=== PATIENT | female | born 1960 | race American Indian/Alaskan Native ===

== ENCOUNTER 2017-11-27 09:29 | Observation (INO) | payer MEDICARE ==
[2017-11-27 09:45] VITALS: BMI 29.4
--- NOTE | 2017-11-27 10:17 | ED PDOC ---
Arrival/HPI - General Chief Complaint: Syncope Time Seen by Provider: 11/27/17 09:52 Historian: Patient - History of Present Illness Narrative History of Present Illness (Text): 11/27/17 16:19 57yo female with PMhx of hypertension, hypercholestremia, breast CA and MS present with complaint of abdominal pain, diarrhea, chest pain and syncopal episode yesterday. Patient report chronic history of diarrhea. States it became worse, constant yesterday. States while having diarrhea yesterday, she had a syncopal episode and hit her head on the floor. Started having chest pain today. Did not take any medication today. denies fever,chills, SOB, diaphoresis , nausea, vomiting, focal weakness, LE edema, calf pain, dizziness, visual changes, focal weakness. Past Medical History - Provider Review Nursing Documentation Reviewed: Yes - Infectious Disease Hx of Infectious Diseases: None - Cardiac Hx Cardiac Disorders: Yes Hx Hypertension: Yes - Pulmonary Hx Respiratory Disorders: No - Neurological Hx Neurological Disorder: No Hx Alzheimer's Disease: No - HEENT Hx HEENT Disorder: No - Renal Hx Renal Disorder: No - Endocrine/Metabolic Hx Endocrine Disorders: No - Hematological/Oncological Hx Blood Disorders: Yes Hx Blood Transfusions: No Hx Blood Transfusion Reaction: No Hx Cancer: Yes (breast cancer) - Integumentary Hx Dermatological Disorder: No - Musculoskeletal/Rheumatological Hx Musculoskeletal Disorders: Yes Other/Comment: multiple sclerosis - Gastrointestinal Hx Gastrointestinal Disorders: Yes Hx Gastroesophageal Reflux: Yes - Genitourinary/Gynecological Hx Genitourinary Disorders: No - Psychiatric Hx Psychophysiologic Disorder: Yes Hx Anxiety: Yes Hx Depression: No Hx Emotional Abuse: No Hx Physical Abuse: No Hx Substance Use: No - Surgical History Hx Breast Biopsy: Yes (right breast) Hx Musculoskeletal Surgery: Yes (back) - Anesthesia Hx Anesthesia: Yes Hx Anesthesia Reactions: No Hx Malignant Hyperthermia: No - Suicidal Assessment Feels Threatened In Home Enviroment: No Family/Social History - Physician Review Nursing Documentation Reviewed: Yes Family/Social History: Unknown Family HX Smoking Status: Never Smoked Hx Alcohol Use: No Hx Substance Use: No Allergies/Home Meds Allergies/Adverse Reactions: Allergies No Known Allergies Allergy (Verified 11/27/17 17:12) Home Medications: Home Meds Medication Instructions Recorded Confirmed Diltiazem HCl [Diltiazem 24Hr Cd] 240 mg PO DAILY 11/27/17 11/27/17 Ergocalciferol (Vitamin D2) 50,000 unit PO QWK 11/27/17 11/27/17 [Vitamin D2] Pantoprazole Sodium [Protonix] 40 mg PO BID 11/27/17 11/27/17 Potassium Chloride [Klor-Con M10] 10 meq PO BID 11/27/17 11/27/17 Rosuvastatin Calcium [Crestor] 20 mg PO HS 11/27/17 11/27/17 Valsartan/Hydrochlorothiazide 1 tab PO DAILY 11/27/17 11/27/17 [Valsartan and Hydrochlorothiazide 25 mg-320 M] Zolpidem Tartrate [Zolpidem 12.5 mg PO PRN PRN 11/27/17 11/27/17 Tartrate ER] Review of Systems - Physician Review All systems were reviewed & negative as marked: Yes - Review of Systems Constitutional: Normal Eyes: Normal ENT: Normal Respiratory: Normal Cardiovascular: Chest Pain. absent: Palpitations, Edema, Calf Pain, MATA Gastrointestinal: Abdominal Pain, Diarrhea. absent: Constipation, Nausea, Vomiting, Hematochezia, Hematemesis Genitourinary Female: Normal Musculoskeletal: Normal Skin: Normal Neurological: Normal Endocrine: Normal Hemo/Lymphatic: Normal Psychiatric: Normal Physical Exam Vital Signs Reviewed: Yes Vital Signs Temp Pulse Resp BP Pulse Ox 11/27/17 18:01 80 17 129/70 99 11/27/17 15:17 85 18 131/65 98 11/27/17 13:22 75 18 131/82 99 11/27/17 11:53 81 17 132/76 98 11/27/17 09:44 97.9 F 66 19 143/96 H 100 Temperature: Afebrile Blood Pressure: Normal Pulse: Regular Respiratory Rate: Normal Appearance: Positive for: Well-Appearing, Non-Toxic, Comfortable Pain Distress: None Mental Status: Positive for: Alert and Oriented X 3 Finger Stick Blood Glucose: 126 - Systems Exam Head: Present: Atraumatic, Normocephalic Pupils: Present: PERRL Extroacular Muscles: Present: EOMI Conjunctiva: Present: Normal Mouth: Present: Moist Mucous Membranes Neck: Present: Normal Range of Motion Respiratory/Chest: Present: Clear to Auscultation, Good Air Exchange. No: Respiratory Distress, Accessory Muscle Use Cardiovascular: Present: Regular Rate and Rhythm, Normal S1, S2. No: Murmurs Abdomen: Present: Normal Bowel Sounds, Other (Soft). No: Tenderness, Distention , Peritoneal Signs, Rebound, Guarding, McBurney's Point Tender, Rovsing's Sign Present Back: Present: Normal Inspection Upper Extremity: Present: Normal Inspection. No: Cyanosis, Edema Lower Extremity: Present: Normal Inspection. No: Edema Neurological: Present: GCS=15, CN II-XII Intact, Speech Normal Skin: Present: Warm, Dry, Normal Color. No: Rashes Psychiatric: Present: Alert, Oriented x 3, Normal Insight, Normal Concentration Medical Decision Making ED Course and Treatment: 11/27/17 10:17 EKG NSR @73bpm 11/27/17 18:41 PT presented for stated history. First CE was negative. Potassium was repleted. Ekg as noted above. D dimer was elevated and V/Q was ordered to r/p PE. V/Q was negative for PE. Head CT - Negative Pt have cardiac risk and will be admitted for chest pain. ASA was given Case was DW Dr. Valenzuela and pt was placed on OBS. - Lab Interpretations Lab Results: 11/27/17 10:00 11/27/17 11:40 Lab Results 11/27/17 11:40: Sodium 139, Potassium 3.1 L, Chloride 100, Carbon Dioxide 24, Anion Gap 17, BUN 20, Creatinine 0.9, Est GFR ( Amer) > 60, Est GFR (Non- Af Amer) > 60, Random Glucose 118 H, Calcium 10.1, Magnesium 2.1, Total Bilirubin 0.5, AST 42 H D, ALT 42, Alkaline Phosphatase 63, Lactate Dehydrogenase 501, Total Creatine Kinase 73, Troponin I < 0.01, Total Protein 7.6, Albumin 4.2, Globulin 3.4, Albumin/Globulin Ratio 1.3, Lipase 82 11/27/17 11:15: Urine Color Yellow, Urine Appearance Clear, Urine pH 6.0, Ur Specific [place] 1.025, Urine Protein 30 H, Urine Glucose (UA) Negative, Urine Ketones Trace H, Urine Blood Trace-lysed H, Urine Nitrate Negative, Urine Bilirubin Negative, Urine Urobilinogen 0.2, Ur Leukocyte Esterase Negative, Urine RBC 1 - 3, Urine WBC 0 - 2, Ur Epithelial Cells 4 - 5, Amorphous Sediment Moderate, Urine Bacteria Many, Urine Other Uyeast 11/27/17 10:05: PT 12.0, INR 1.04, APTT 24.2 L, D-Dimer, Quantitative 286 H 11/27/17 10:00: WBC 8.8, RBC 4.89, Hgb 14.1 D, Hct 41.6, MCV 85.1, MCH 28.8, MCHC 33.9, RDW 14.8 H, Plt Count 395, MPV 9.7, Gran % 62.1, Lymph % (Auto) 33.3 , [place] % (Auto) 3.9, Eos % (Auto) 0.2 L, Baso % (Auto) 0.5, Gran # 5.45, Lymph # (Auto) 2.9, [place] # (Auto) 0.3, Eos # (Auto) 0.0, Baso # (Auto) 0.04 11/27/17 09:48: POC Glucose (mg/dL) 126 H - RAD Interpretation Radiology Orders: 11/27/17 10:08 HEAD W/O CONTRAST [CT] Stat 11/27/17 13:27 LUNG PERF & VENT SCAN [NM] Stat - Medication Orders Current Medication Orders: Acetaminophen (Tylenol 325mg Tab) 650 mg PO Q4H PRN PRN Reason: Pain, Mild (1-3) Aspirin (Ecotrin) 81 mg PO DAILY [facility] Atorvastatin Calcium (Lipitor) 80 mg PO HS MIGEL Diltiazem HCl (Cardizem Cd) 240 mg PO DAILY [facility] Ergocalciferol (Drisdol 50,000 Intl Units Cap) 1 cap PO QWK [facility] Heparin Sodium (Porcine) (Heparin) 5,000 units SC Q12 MIGEL PRN Reason: Protocol Potassium Chloride (Potassium Chloride 20 Meq/100 Ml) 20 meq in 100 mls @ 50 mls/hr IVPB Q2H MIGEL Stop: 11/27/17 21:59 Last Admin: 11/27/17 18:26 Dose: 50 mls/hr eMAR Start Stop Document 11/27/17 18:26 SF (Rec: 11/27/17 18:26 SF [id number]) Intravenous Solution Start Date 11/27/17 Start Time 18:26 End Date 11/27/17 End time 20:26 Total Infusion Time 120 Sodium Chloride (Sodium Chloride 0.9%) 1,000 mls @ 80 mls/hr IV .[id number] MIGEL Stop: 11/28/17 19:14 Last Admin: 11/27/17 18:23 Dose: 80 mls/hr eMAR Start Stop Document 11/27/17 18:23 SF (Rec: 11/27/17 18:23 SF [id number]) Intravenous Solution Start Date 11/27/17 Start Time 18:23 Ondansetron HCl (Zofran Inj) 4 mg IVP Q4H PRN PRN Reason: Nausea/Vomiting Pantoprazole Sodium (Protonix Ec Tab) 40 mg PO BID MIGEL Last Admin: 11/27/17 18:25 Dose: 40 mg Valsartan (Diovan) 320 mg PO DAILY [facility] Zolpidem Tartrate (Ambien) 5 mg PO HS PRN PRN Reason: Insomnia Discontinued Medications Acetaminophen (Tylenol 325mg Tab) 650 mg PO STAT STA Stop: 11/27/17 13:06 Last Admin: 11/27/17 13:26 Dose: 650 mg MAR Pain/Vitals Document 11/27/17 13:26 SF (Rec: 11/27/17 13:26 SF [id number]) Pain Reassessment Is This A Pain ReAssessment? Yes Sleep Is patient sleeping during reassessment? No Presence of Pain Presence of Pain Yes Pain Scale Used Pain Scale Used Numeric Location Pain Location Body Screener Operator Aspirin (Aspirin) 325 mg PO STAT STA Stop: 11/27/17 13:06 Last Admin: 11/27/17 13:26 Dose: 325 mg Non-Formulary Medication (Zolpidem Tartrate [Zolpidem Tartrate Er]) 12.5 mg PO PRN PRN PRN Reason: Insomnia Potassium Chloride (K-Dur 20 Meq Er Tab) 40 meq PO STAT STA Stop: 11/27/17 16:18 Last Admin: 11/27/17 18:25 Dose: 40 meq Potassium Chloride (K-Dur 20 Meq Er Tab) 20 meq PO STAT STA Stop: 11/27/17 16:28 Last Admin: 11/27/17 18:14 Dose: Disposition/Present on Arrival - Present on Arrival Any Indicators Present on Arrival: No History of DVT/PE: No History of Uncontrolled Diabetes: No Urinary Catheter: No History of Decub. Ulcer: No History Surgical Site Infection Following: None - Disposition Have Diagnosis and Disposition been Completed?: Yes Diagnosis: Chest pain, Syncope Disposition: HOSPITALIZED Disposition Time: 16:00 Patient Plan: Admission Patient Problems: Current Active Problems Problem Status Onset Chest pain Acute Syncope Acute Condition: FAIR
[2017-11-27 10:18] LABS: BASO # 0.04 K/mm3 (0.0-2.0); BASO % 0.5 % (0.0-3.0); EOS % 0.2 % (1.5-5.0); GRAN # 5.45 (1.4-6.5); GRAN % 62.1 % (50.0-68.0); HEMOGLOBIN 14.1 g/dL (12.0-16.0); LYMPH # 2.9 (1.2-3.4); LYMPH % 33.3 % (22.0-35.0); MEAN CELL VOLUME 85.1 fl (80.0-105.0); MEAN CORPUSCULAR HEMOGLOBIN 28.8 pg (25.0-35.0); MEAN CORPUSCULAR HGB CONC 33.9 g/dl (31.0-37.0); MEAN PLATELET VOLUME 9.7 fl (7.0-11.0); MONO # 0.3 (0.1-0.6); MONO % 3.9 % (1.0-6.0); RBC 4.89 10^6/uL (3.5-6.1); RED CELL DISTRIBUTION WIDTH 14.8 % (11.5-14.5); WHITE BLOOD COUNT 8.8 10^3/ul (4.5-11.0)
[2017-11-27 10:33] LABS: INR 1.04 (0.93-1.08); PARTIAL THROMBOPLASTIN TIME 24.2 Seconds (25.1-36.5)
--- NOTE | 2017-11-27 11:08 | CT ---
PROCEDURE: CT HEAD WITHOUT CONTRAST. HISTORY: head injury COMPARISON: None available. TECHNIQUE: Axial computed tomography images were obtained through the head/brain without intravenous contrast. Radiation dose: Total exam DLP = 895.02 mGy-cm. This CT exam was performed using one or more of the following dose reduction techniques: Automated exposure control, adjustment of the mA and/or kV according to patient size, and/or use of iterative reconstruction technique. FINDINGS: HEMORRHAGE: No intracranial hemorrhage. BRAIN: No mass effect or edema. No atrophy or chronic microvascular ischemic changes. VENTRICLES: Unremarkable. No hydrocephalus. CALVARIUM: Unremarkable. PARANASAL SINUSES: Unremarkable as visualized. No significant inflammatory changes. MASTOID AIR CELLS: Unremarkable as visualized. No inflammatory changes. OTHER FINDINGS: None. IMPRESSION: No acute intracranial abnormalities. No significant findings to account for the clinical presentation.
[2017-11-27 11:21] LABS: URINE BILIRUBIN NEGATIVE (NEGATIVE); URINE BLOOD TRACE-LYSED (NEGATIVE); URINE GLUCOSE (UA) NEGATIVE (NEGATIVE); URINE LEUKOCYTE ESTERASE NEGATIVE Leu/uL (NEGATIVE); URINE PROTEIN 30 mg/dL (<30 mg/dL); URINE UROBILINOGEN 0.2 E.U./dL (<1 E.U./dL)
[2017-11-27 11:28] LABS: URINE APPEARANCE CLEAR (CLEAR); URINE COLOR YELLOW (YELLOW)
[2017-11-27 11:38] LABS: URINE AMORPHOUS SEDIMENT MODERATE; URINE BACTERIA MANY (NEG); URINE WBC 0 - 2 /hpf (0-6)
[2017-11-27 11:59] LABS: ALB/GLOB RATIO 1.3 (1.1-1.8); ALBUMIN 4.2 g/dL (3.0-4.8); ALT/SGPT 42 U/L (7-56); AST/SGOT 42 U/L (14-36); BLOOD UREA NITROGEN 20 mg/dL (7-21); CALCIUM 10.1 mg/dL (8.4-10.5); GFR AFRICAN-AMERICAN > 60; GFR NON-AFRICAN AMERICAN > 60; LIPASE 82 U/L (23-300)
[2017-11-27 12:09] LABS: TROPONIN I < 0.01 ng/mL
[2017-11-27] MEDS ORDERED: Iohexol 350 MG/100 ML VIAL ONE ×2 (12:56→18:16)
--- NOTE | 2017-11-27 15:02 | NM ---
COMPARISON: 09/30/2017 TECHNIQUE: 30.0 mCi technetium 99-m DTPA aerosol. 3.6 mCI technetium 99-m MAA administered intravenously. FINDINGS: VENTILATION COMPONENT: Normal. PERFUSION COMPONENT: Normal. IMPRESSION: Negative ventilation perfusion scan for pulmonary embolism.
[2017-11-27] MEDS ORDERED: Potassium Chloride 20 mEq ER Tab PO STA ×2 (16:17→16:27)
--- NOTE | 2017-11-27 16:25 | CP.PCM.HP ---
<Kathy Evans - Last Filed: 11/27/17 19:31> History of Present Illness - History of Present Illness History of Present Illness: 57yo female with PMhx of breast CA and MS diagnosed by neurologist presents with cough, diarrhea yesterday. Patient states she had a cold and Dr. Valenzuela prescribed mucinex, which is the first time she took this medication. Patient states she had diarrhea multiple times yesterday. Patient states she had a syncopal episode on her way to the bathroom, she had a panic attack, called for her son and then found herself on the ground with the back of her neck and right frontal area of her head hurting. Patient also says her chest pain started yesterday after her coughing started. Patient states her pain feels dull like a bruise. . Patient denies ever,chills, SOB, diaphoresis, nausea, vomiting, any weakness, numbness, tingling, diarrhea after today.. Patient admits to right sided chest pain that feels like a bruise that's reproducible. PMH: breast CA and MS PSH:none Family history: mother and father are . patient does not know family history Social history: never smoker, patient denies etoh, illicit drug use PMD: Dr. Valenzuela. Present on Admission - Present on Admission Any Indicators Present on Admission: Yes History of DVT/PE: No History of Uncontrolled Diabetes: No Urinary Catheter: No Decubitus Ulcer Present: No Past Patient History - Infectious Disease Hx of Infectious Diseases: None - Past Social History Smoking Status: Never Smoked - CARDIAC Hx Cardiac Disorders: Yes Hx Hypertension: Yes - PULMONARY Hx Respiratory Disorders: No - NEUROLOGICAL Hx Neurological Disorder: No Hx Alzheimer's Disease: No - HEENT Hx HEENT Problems: No - RENAL Hx Chronic Kidney Disease: No - ENDOCRINE/METABOLIC Hx Endocrine Disorders: No - HEMATOLOGICAL/ONCOLOGICAL Hx Blood Disorders: Yes Hx Blood Transfusions: No Hx Blood Transfusion Reaction: No Hx Cancer: Yes (breast cancer) - INTEGUMENTARY Hx Dermatological Problems: No - MUSCULOSKELETAL/RHEUMATOLOGICAL Hx Musculoskeletal Disorders: Yes Other/Comment: multiple sclerosis - GASTROINTESTINAL Hx Gastrointestinal Disorders: Yes Hx Gastroesophageal Reflux: Yes - GENITOURINARY/GYNECOLOGICAL Hx Genitourinary Disorders: No - PSYCHIATRIC Hx Psychophysiologic Disorder: Yes Hx Anxiety: Yes Hx Depression: No Hx Emotional Abuse: No Hx Physical Abuse: No Hx Substance Use: No - SURGICAL HISTORY Hx Breast Biopsy: Yes (right breast) Hx Musculoskeletal Surgery: Yes (back) - ANESTHESIA Hx Anesthesia: Yes Hx Anesthesia Reactions: No Hx Malignant Hyperthermia: No Meds Allergies/Adverse Reactions: Allergies Allergy/AdvReac Type Severity Reaction Status Date / Time No Known Allergies Allergy Verified 11/27/17 17:12 Physical Exam - Constitutional Appears: Non-toxic, No Acute Distress - Head Exam Head Exam: NORMAL INSPECTION, NORMOCEPHALIC. absent: ATRAUMATIC (right forehead ecchymosis ) - Eye Exam Eye Exam: EOMI, Normal appearance - ENT Exam ENT Exam: Mucous Membranes Moist - Neck Exam Neck exam: Positive for: Full Rom, Normal Inspection. Negative for: Tenderness - Respiratory Exam Respiratory Exam: Clear to Auscultation Bilateral, NORMAL BREATHING PATTERN. absent: Accessory Muscle Use - Cardiovascular Exam Cardiovascular Exam: REGULAR RHYTHM, +S1, +S2. absent: Bradycardia, Tachycardia - GI/Abdominal Exam GI & Abdominal Exam: Distended, Hypoactive Bowel Sounds, Soft. absent: Firm, Guarding - Extremities Exam Extremities exam: Positive for: full ROM, normal inspection. Negative for: pedal edema - Neurological Exam Neurological exam: Alert, CN II-XII Intact, Oriented x3, Reflexes Normal - Psychiatric Exam Psychiatric exam: Normal Affect, Normal Mood - Skin Skin Exam: Dry, Intact, Normal Color, Warm Results - Vital Signs Recent Vital Signs: Last Vital Signs Temp 97.9 F 11/27/17 09:44 Pulse 85 11/27/17 15:17 Resp 18 11/27/17 15:17 BP 131/65 11/27/17 15:17 Pulse Ox 98 11/27/17 15:17 - Labs Result Diagrams: 11/27/17 10:00 11/27/17 11:40 Labs: Laboratory Results - last 24 hr 11/27/17 11/27/17 11/27/17 09:48 10:00 10:05 WBC 8.8 RBC 4.89 Hgb 14.1 D Hct 41.6 MCV 85.1 MCH 28.8 MCHC 33.9 RDW 14.8 H Plt Count 395 MPV 9.7 Gran % 62.1 Lymph % (Auto) 33.3 [place] % (Auto) 3.9 Eos % (Auto) 0.2 L Baso % (Auto) 0.5 Gran # 5.45 Lymph # (Auto) 2.9 [place] # (Auto) 0.3 Eos # (Auto) 0.0 Baso # (Auto) 0.04 PT 12.0 INR 1.04 APTT 24.2 L D-Dimer, Quantitative 286 H Sodium Potassium Chloride Carbon Dioxide Anion Gap BUN Creatinine Est GFR ( Amer) Est GFR (Non-Af Amer) POC Glucose (mg/dL) 126 H Random Glucose Calcium Magnesium Total Bilirubin AST ALT Alkaline Phosphatase Lactate Dehydrogenase Total Creatine Kinase Troponin I Total Protein Albumin Globulin Albumin/Globulin Ratio Lipase Urine Color Urine Appearance Urine pH Ur Specific [place] Urine Protein Urine Glucose (UA) Urine Ketones Urine Blood Urine Nitrate Urine Bilirubin Urine Urobilinogen Ur Leukocyte Esterase Urine RBC Urine WBC Ur Epithelial Cells Amorphous Sediment Urine Bacteria Urine Other 11/27/17 11/27/17 11:15 11:40 WBC RBC Hgb Hct MCV MCH MCHC RDW Plt Count MPV Gran % Lymph % (Auto) [place] % (Auto) Eos % (Auto) Baso % (Auto) Gran # Lymph # (Auto) [place] # (Auto) Eos # (Auto) Baso # (Auto) PT INR APTT D-Dimer, Quantitative Sodium 139 Potassium 3.1 L Chloride 100 Carbon Dioxide 24 Anion Gap 17 BUN 20 Creatinine 0.9 Est GFR ( Amer) > 60 Est GFR (Non-Af Amer) > 60 POC Glucose (mg/dL) Random Glucose 118 H Calcium 10.1 Magnesium 2.1 Total Bilirubin 0.5 AST 42 H D ALT 42 Alkaline Phosphatase 63 Lactate Dehydrogenase 501 Total Creatine Kinase 73 Troponin I < 0.01 Total Protein 7.6 Albumin 4.2 Globulin 3.4 Albumin/Globulin Ratio 1.3 Lipase 82 Urine Color Yellow Urine Appearance Clear Urine pH 6.0 Ur Specific [place] 1.025 Urine Protein 30 H Urine Glucose (UA) Negative Urine Ketones Trace H Urine Blood Trace-lysed H Urine Nitrate Negative Urine Bilirubin Negative Urine Urobilinogen 0.2 Ur Leukocyte Esterase Negative Urine RBC 1 - 3 Urine WBC 0 - 2 Ur Epithelial Cells 4 - 5 Amorphous Sediment Moderate Urine Bacteria Many Urine Other Uyeast Assessment & Plan - Assessment and Plan (Free Text) Assessment: 57f with past medical history of breast cancer and MS presents with chest pain, diarrhea, and one syncopal episode that began yesterday. Syncope Neurology Consult Dr. Cruz lyme IgG Lyme IgM RPR Chest pain ACS R/o f/u Cardiac ISO q4h neg x1 Cardiology Consult: Dr. Melissa TSH free T4 Cardizem 240mg PO QD Vitamin D Diarrhea, electrolyte abnormaties: hyokalemia, repleted supportive care monitor electrolytes f/u CMP GI consult: Dr. Blum cdiff toxin ova and parasites stool culture urine culture Zofran 4mg IVP Q4H PRN Prophylaxis Heparin 5000 u SC Q12H Protonix 40mg PO BID discussed with Dr. Bianca Evans DO PGY1 - Date & Time Date: 11/27/17 Time: 16:55 <Leonardo Valenzuela - Last Filed: 11/28/17 10:19> Results - Vital Signs Recent Vital Signs: Last Vital Signs Temp 98.3 F 11/28/17 06:00 Pulse 74 11/28/17 06:00 Resp 20 11/28/17 06:00 BP 117/78 11/28/17 06:00 Pulse Ox 99 11/28/17 06:00 - Labs Result Diagrams: 11/28/17 05:30 11/28/17 05:30 Labs: Laboratory Results - last 24 hr 11/27/17 11/27/17 11/27/17 18:06 22:56 22:56 WBC RBC Hgb Hct MCV MCH MCHC RDW Plt Count MPV Gran % Lymph % (Auto) [place] % (Auto) Eos % (Auto) Baso % (Auto) Gran # Lymph # (Auto) [place] # (Auto) Eos # (Auto) Baso # (Auto) Sodium Potassium Chloride Carbon Dioxide Anion Gap BUN Creatinine Est GFR ( Amer) Est GFR (Non-Af Amer) Random Glucose Calcium Magnesium Total Bilirubin Direct Bilirubin AST ALT Alkaline Phosphatase Lactate Dehydrogenase 426 Total Creatine Kinase 57 Troponin I < 0.01 Total Protein Albumin Globulin Albumin/Globulin Ratio Free T4 1.53 Thyroxine (T4) 11.0 TSH 3rd Generation 1.71 Urine Opiates Screen Negative Urine Methadone Screen Negative Ur Barbiturates Screen Negative Ur Phencyclidine Scrn Negative Ur Amphetamines Screen Negative U Benzodiazepines Scrn Negative U Oth Cocaine Metabols Negative U Cannabinoids Screen Negative 11/28/17 11/28/17 11/28/17 02:15 05:30 05:30 WBC 10.6 D RBC 4.27 Hgb 11.9 L D Hct 36.6 MCV 85.7 MCH 27.9 MCHC 32.5 RDW 14.9 H Plt Count 365 MPV 9.6 Gran % 60.6 Lymph % (Auto) 34.2 [place] % (Auto) 4.6 Eos % (Auto) 0.4 L Baso % (Auto) 0.2 Gran # 6.44 Lymph # (Auto) 3.6 H [place] # (Auto) 0.5 Eos # (Auto) 0.0 Baso # (Auto) 0.02 Sodium 136 Potassium 3.9 Chloride 103 Carbon Dioxide 24 Anion Gap 13 BUN 17 Creatinine 0.9 Est GFR ( Amer) > 60 Est GFR (Non-Af Amer) > 60 Random Glucose 115 H Calcium 9.3 Magnesium 1.9 Total Bilirubin 0.4 Direct Bilirubin 0.3 AST 29 ALT 35 Alkaline Phosphatase 44 Lactate Dehydrogenase Total Creatine Kinase 47 Troponin I < 0.01 Total Protein 6.2 Albumin 3.4 Globulin 2.8 Albumin/Globulin Ratio 1.2 Free T4 Thyroxine (T4) TSH 3rd Generation Urine Opiates Screen Urine Methadone Screen Ur Barbiturates Screen Ur Phencyclidine Scrn Ur Amphetamines Screen U Benzodiazepines Scrn U Oth Cocaine Metabols U Cannabinoids Screen Assessment & Plan - Assessment and Plan (Free Text) Assessment: Patient examined vital signs and diagnostic data reviewed Please refer to the detailed history and physical examination by the biomedical repair technician for further details Assessment and plan 1.Syncope with loss of bowel incontinence 2.Diarrhea 3.Symptomatic hypokalemia 4 chest pain 5. Anemia Elevated d-dimer Proteinuria and pyuria bacteriuria and funguria. 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 Anh score 6 History of total abdominal hysterectomy and bilateral salpingo-oophorectomy History of hypertension hyperlipidemia insomnia hypokalemia History of multiple sclerosis relapsing remitting History of cholelithiasis with gallbladder sludge PLAN; Admit to telemetry Cardiology neurology and gastroenterology consultation MRI MRA of the brain MRI of the cervical spine Carotid Doppler bilateral Serial EKGs and cardiac enzymes Orthostatic vital signs Neuro checks Seizure precaution Electrolyte supplementation DVT GI prophylaxis Further management as per patient's hemodynamic status and as per diagnostic therapeutic intervention and as per recommendation by gastroenterology cardiology and neurology Dictated and electronically signed not read LEONARDO VALENZUELA M.D.
--- NOTE | 2017-11-27 17:06 | CARD ---
APPROVED REPORT EKG Measurement Heart [id number] <Conclusion> Normal sinus rhythm with sinus arrhythmia Possible Left atrial enlargement Left ventricular hypertrophy Abnormal ECG
[2017-11-27] MEDS ORDERED: ZOLPIDEM TARTRATE 12.5 MG PO PRN (17:14)
[2017-11-27] MEDS ORDERED: Iohexol 240 (50 ml) ONE (18:16)
[2017-11-27] MEDS: Sodium Chloride 0.9% 1,000 ML IV SCH (18:23)
[2017-11-27] MEDS: Pantoprazole 40 mg EC Tab PO SCH (18:25)
--- NOTE | 2017-11-27 19:18 | US ---
PROCEDURE: Bilateral carotid artery duplex ultrasound HISTORY: Carotid stenosis PHYSICIAN(S): Dhaval Dos Santos MD. TECHNIQUE: Duplex sonography and color-flow Doppler were used to evaluate the carotid bifurcations and limited segments of the vertebral arteries bilaterally. FINDINGS: There is mild focal smooth heterogeneous plaque noted at the carotid bifurcations bilaterally. The peak systolic velocity in the proximal right internal carotid artery is 58 cm/sec. This corresponds to a 20 to 39% proximal right ICA stenosis. Normal systolic velocities are noted in the proximal right external carotid artery. There is antegrade flow in the small right vertebral artery. The peak systolic velocity in the proximal left internal carotid artery is 66 cm/sec. This corresponds to a 20 to 39% proximal left ICA stenosis. Normal systolic velocities are noted in the proximal left external carotid artery. There is antegrade flow in the left vertebral artery. IMPRESSION: 1. Bilateral 20-39% proximal ICA stenoses. 2. Antegrade flow in both vertebral arteries.
[2017-11-27 19:24] LABS: PHENCYCLIDINE, UR NEGATIVE (NEGATIVE)
[2017-11-27 19:29] LABS: BARBITURATES, UR NEGATIVE (NEGATIVE); BENZODIAZEPINES, UR NEGATIVE (NEGATIVE); OPIATES, UR NEGATIVE (NEGATIVE)
[2017-11-27] MEDS ORDERED: Non Formulary Medication (Rosuvastatin Calcium [Crestor] 20 MG) PO SCH (22:00)
[2017-11-27] MEDS ORDERED: Pneumococcal 23-Valent Vaccine IM ONE (23:08)
[2017-11-27] MEDS ORDERED: Influenza Vaccine 60 mcg/0.5 mL SYR (4YR UP) IM ONE (23:08)
[2017-11-27 23:21] LABS: TROPONIN I < 0.01 ng/mL
[2017-11-27 23:26] LABS: FREE T4 1.53 ng/dL (0.78-2.19)
[2017-11-28 02:52] LABS: TROPONIN I < 0.01 ng/mL
[2017-11-28] MEDS: Sodium Chloride 0.9% 1,000 ML IV SCH (05:49)
[2017-11-28 06:01] VITALS: O2SAT 99
[2017-11-28 06:34] LABS: BASO # 0.02 K/mm3 (0.0-2.0); BASO % 0.2 % (0.0-3.0); EOS % 0.4 % (1.5-5.0); GRAN # 6.44 (1.4-6.5); GRAN % 60.6 % (50.0-68.0); LYMPH # 3.6 (1.2-3.4); LYMPH % 34.2 % (22.0-35.0); MEAN CELL VOLUME 85.7 fl (80.0-105.0); MEAN CORPUSCULAR HEMOGLOBIN 27.9 pg (25.0-35.0); MEAN CORPUSCULAR HGB CONC 32.5 g/dl (31.0-37.0); MEAN PLATELET VOLUME 9.6 fl (7.0-11.0); MONO # 0.5 (0.1-0.6); MONO % 4.6 % (1.0-6.0); RBC 4.27 10^6/uL (3.5-6.1); RED CELL DISTRIBUTION WIDTH 14.9 % (11.5-14.5); WHITE BLOOD COUNT 10.6 10^3/ul (4.5-11.0)
[2017-11-28 06:45] LABS: HEMOGLOBIN 11.9 g/dL (12.0-16.0)
[2017-11-28 07:16] LABS: ALB/GLOB RATIO 1.2 (1.1-1.8); ALBUMIN 3.4 g/dL (3.0-4.8); ALT/SGPT 35 U/L (7-56); AST/SGOT 29 U/L (14-36); BILIRUBIN,DIRECT 0.3 mg/dL (0.0-0.4); BLOOD UREA NITROGEN 17 mg/dL (7-21); CALCIUM 9.3 mg/dL (8.4-10.5); GFR AFRICAN-AMERICAN > 60; GFR NON-AFRICAN AMERICAN > 60
[2017-11-28] MEDS ORDERED: Sodium Chloride 0.9% 1,000 ML IV SCH (09:45)
[2017-11-28] MEDS ORDERED: Non Formulary Medication (Valsartan/Hydrochlorothiazide [Valsartan-Hctz 320-25 Mg Tab] 1 T PO SCH (10:00)
[2017-11-28] MEDS ORDERED: diltiaZEM 240 mg/24 Hours CD Cap PO SCH (10:00)
[2017-11-28] MEDS: Pantoprazole 40 mg EC Tab PO SCH ×2 (11:00→17:32)
[2017-11-28] MEDS: Potassium Chloride 20 mEq ER Tab PO SCH ×2 (11:01→17:32)
--- NOTE | 2017-11-28 11:17 | CP.PCM.PN ---
Subjective - Date & Time of Evaluation Date of Evaluation: 11/28/17 Time of Evaluation: 09:30 - Subjective Subjective: Medicine Note for Dr. Valenzuela Patient seen and examined at bedside. No acute event overnight. Patient states diarrhea has resolved. She is only complaining of headache. She will be going for MRI/MRA but is concerned because she is claustrophobic. Benadryl and Ativan will be given prior to studies. No other complaints at this time. Objective - Vital Signs/Intake and Output Vital Signs (last 24 hours): Temp Pulse Resp BP Pulse Ox 98.3 F 87 20 117/78 99 11/28/17 06:00 11/28/17 11:00 11/28/17 06:00 11/28/17 06:00 11/28/17 06:00 - Medications Medications: Current Medications Acetaminophen (Tylenol 325mg Tab) 650 mg PO Q4H PRN PRN Reason: Pain, Mild (1-3) Aspirin (Ecotrin) 81 mg PO DAILY [facility] Last Admin: 11/28/17 11:00 Dose: 81 mg Atorvastatin Calcium (Lipitor) 80 mg PO HS [facility] Last Admin: 11/27/17 23:31 Dose: 80 mg Diltiazem HCl (Cardizem Cd) 240 mg PO DAILY [facility] Last Admin: 11/28/17 11:00 Dose: 240 mg Diphenhydramine HCl (Benadryl) 50 mg IM ONCE ONE Stop: 11/28/17 12:31 Ergocalciferol (Drisdol 50,000 Intl Units Cap) 1 cap PO QWK [facility] Heparin Sodium (Porcine) (Heparin) 5,000 units SC Q12 [facility]IGEL PRN Reason: Protocol Last Admin: 11/28/17 11:01 Dose: 5,000 units Sodium Chloride (Sodium Chloride 0.9%) 1,000 mls @ 80 mls/hr IV .[id number] [facility] Stop: 11/29/17 10:44 Lorazepam (Ativan) 4 mg IM ONCE ONE PRN Reason: Protocol Stop: 11/28/17 12:31 Ondansetron HCl (Zofran Inj) 4 mg IVP Q4H PRN PRN Reason: Nausea/Vomiting Pantoprazole Sodium (Protonix Ec Tab) 40 mg PO BID [facility] Last Admin: 11/28/17 11:00 Dose: 40 mg Potassium Chloride (K-Dur 20 Meq Er Tab) 20 meq PO BID [facility] Last Admin: 11/28/17 11:01 Dose: 20 meq Valsartan (Diovan) 320 mg PO DAILY [facility] Zolpidem Tartrate (Ambien) 5 mg PO HS PRN PRN Reason: Insomnia Last Admin: 11/27/17 23:30 Dose: 5 mg - Labs Labs: 11/28/17 05:30 11/28/17 05:30 PT 12.0 SECONDS (9.4-12.5) 11/27/17 10:05 INR 1.04 (0.93-1.08) 11/27/17 10:05 APTT 24.2 Seconds (25.1-36.5) L 11/27/17 10:05 - Constitutional Appears: No Acute Distress - Head Exam Head Exam: NORMOCEPHALIC. absent: ATRAUMATIC (ecchymosis on Right forehead) - Eye Exam Eye Exam: EOMI, Normal appearance Pupil Exam: PERRL - ENT Exam ENT Exam: Mucous Membranes Moist - Neck Exam Neck Exam: absent: Tenderness - Respiratory Exam Respiratory Exam: Clear to Ausculation Bilateral, NORMAL BREATHING PATTERN - Cardiovascular Exam Cardiovascular Exam: REGULAR RHYTHM - GI/Abdominal Exam GI & Abdominal Exam: Soft, Normal Bowel Sounds. absent: Distended, Firm, Guarding, Rigid, Tenderness, Rebound - Extremities Exam Extremities Exam: Normal Capillary Refill - Back Exam Back Exam: absent: CVA tenderness (L), CVA tenderness (R) - Neurological Exam Neurological Exam: Alert, Awake, CN II-XII Intact, Oriented x3 - Psychiatric Exam Psychiatric exam: Normal Affect, Normal Mood - Skin Skin Exam: Dry, Intact, Warm Assessment and Plan - Assessment and Plan (Free Text) Plan: 57F with past medical history of breast cancer and MS presents for syncope Syncope Carotid US: bilateral 20-49% stenosis f/u MRI brain and cervical spine f/u MRA head Neurology Consult Dr. Cruz lyme titers RPR Chest pain ACS R/o Cardiac enzymes negative Cardiology Consult: Dr. Melissa Cardizem 240mg PO QD ASA Lipitor Diarrhea supportive care monitor electrolytes Potassium supplementation GI consult: Dr. Blum cdiff toxin ova and parasites stool culture urine culture Zofran 4mg IVP Q4H PRN Insomnia Ambien Prophylaxis Heparin 5000 u SC Q12H Protonix 40mg PO BID Discussed with Dr. Bianca Wray PGY1
--- NOTE | 2017-11-28 11:23 | CT ---
PROCEDURE: CT Abdomen and Pelvis with contrast HISTORY: Diarrhea COMPARISON: 08/06/2017. TECHNIQUE: Contrast dose: 100 mL Omnipaque 350 Radiation dose: Total exam DLP = 750.97 mGy-cm. This CT exam was performed using one or more of the following dose reduction techniques: Automated exposure control, adjustment of the mA and/or kV according to patient size, and/or use of iterative reconstruction technique. FINDINGS: LOWER THORAX: There is minimal subsegmental atelectasis in the right lung base. The left lung base is clear. LIVER: Normal in size with homogeneous enhancement. No gross lesion or ductal dilatation. GALLBLADDER AND BILE DUCTS: There are no calcified gallstones. PANCREAS: Normal in size with homogeneous enhancement. No gross lesion or ductal dilatation. SPLEEN: Normal in size and appearance. ADRENALS: No discrete nodule. KIDNEYS AND URETERS: Both kidneys are normal in size and there is homogeneous enhancement. No hydronephrosis. No solid mass. VASCULATURE: Unremarkable. No aortic aneurysm. BOWEL: The small bowel loops are normal in caliber. There is fatty deposition in the colonic wall and terminal ileum. No bowel dilatation or obstruction. There is scattered colonic diverticulosis without CT evidence for acute diverticulitis. APPENDIX: Normal appendix. PERITONEUM: No free fluid. No free air. LYMPH NODES: No enlarged lymph nodes. BLADDER: Unremarkable. REPRODUCTIVE: Unremarkable. BONES: No acute fracture. Multilevel degenerative disc disease worse at L4-5. OTHER FINDINGS: None. IMPRESSION: 1. No acute abdominal or pelvic abnormality. 2. Diffuse fatty deposit mistry in the colonic wall and terminal ileum which can be seen with chronic inflammatory bowel disease. 3. Scattered colonic diverticulosis without CT evidence for acute diverticulitis.
[2017-11-28] MEDS ORDERED: DiphenhydrAMINE 50 mg/ml Inj IM ONE (12:30)
--- NOTE | 2017-11-28 13:08 | CON ---
DATE: 11/28/2017 GASTROENTEROLOGY CONSULT REQUESTING PHYSICIAN: Lorenzo Valenzuela MD. REASON FOR CONSULTATION: I have been asked to see this 57-year-old female with a history of breast cancer and multiple sclerosis, who comes to the hospital after having a syncopal episode at home. The patient apparently hit her head in the back of her neck during the fall. The patient apparently had 1 day of chest pain after developing of cough. The pain is worse with inspiration. The patient had diarrhea for 24 hours 2 days ago. She has not had any further diarrhea since. She denies any recent antibiotic use, travel or ingestion of any unusual foods. She denies any rectal bleeding, nausea, vomiting, melena or hematemesis. She denies any fevers or chills. PAST MEDICAL HISTORY: Notable for multiple sclerosis and breast cancer. The patient also has a history of hypertension, GERD and anxiety disorder. PAST SURGICAL HISTORY: Back surgery and right breast biopsy. SOCIAL HISTORY: She denies cigarette smoking or alcohol use. FAMILY HISTORY: Noncontributory. REVIEW OF SYSTEMS: Fourteen-point review of systems is notable for syncope, diarrhea, cough and pleuritic-type chest pain. MEDICATIONS AT HOME: Include zolpidem 12.5 mg as needed, valsartan and hydrochlorothiazide 1 tab daily, Crestor 20 mg at night, potassium chloride 10 mg twice a day, Protonix 40 mg twice a day, vitamin D 50,000 units weekly, diltiazem 240 mg daily. PHYSICAL EXAMINATION: VITAL SIGNS: Reveal temperature of 98.3, blood pressure 117/78, heart rate of 74. HEENT: Reveals sclerae to be white. Conjunctivae pink. She has a small area of ecchymosis on her right forehead. NECK: Supple. CHEST: Reveal lungs to be clear. HEART: Reveals a regular rate and rhythm. ABDOMEN: Soft, nontender. No mass. EXTREMITIES: Show no edema. LABORATORY DATA: Reveal white blood cell count 10.6, hemoglobin 11.9, platelet count 365,000. Chemistries reveal normal electrolytes. IMPRESSION: 1. A 57-year-old female with syncope. Carotid ultrasound shows 30% proximal internal carotid artery stenosis. 2. Pleuritic chest pain. 3. Self-limited diarrhea. RECOMMENDATIONS: 1. Check stool for C&S, O&P and C. diff. 2. Cardiology evaluation for chest pain and syncope. Karan Blum MD
[2017-11-28 13:27] LABS: FOLATE 8.3 ng/mL
[2017-11-28 17:38] VITALS: BP 133/90; PULSE 81; RESP 18; TEMP 98
--- NOTE | 2017-11-28 17:49 | CARD ---
APPROVED REPORT EKG Measurement Heart [id number] <Conclusion> Normal sinus rhythm with sinus arrhythmia ST & T wave abnormality, consider anterior ischemia Prolonged QT Abnormal ECG
--- NOTE | 2017-11-28 19:18 | CON ---
DATE: 11/28/2017 NEUROLOGY CONSULTATION CHIEF COMPLAINT: Syncope. HISTORY OF PRESENT ILLNESS: This is a 57-year-old woman with history of breast cancer since 2013, status post right mastectomy, status post chemoradiation; history of multiple sclerosis since 1999, used to be on Copaxone, but was taken off due to having breast cancer, is currently not on any disease-modifying therapy, sees Dr. Reyes as her neurologist. baclofen for acute onset of muscle spasm, she has history of anxiety, hypertension, who was brought in because she apparently had syncopal episode at home while walking to the bathroom. Patient had diarrhea for the past 2 days and was rushing to get to the bathroom where she felt lightheaded and had passed out. No seizure-like activity. Her EEG showed a diffuse cerebral dysfunction. No evidence of any epileptiform activity. No acute events overnight, she is doing well. No brisk reflexes seen on examination. CAT scan of the head showed no acute intracranial abnormality. PAST MEDICAL HISTORY: History of hypertension, multiple sclerosis [place] [address] Reyes, , disease-modifying therapy, history of breast cancer in 2013, status post right mastectomy, chemoradiation therapy, hypertension, anxiety. REVIEW OF SYSTEMS: A 14-point review of systems negative except as per the HPI. FAMILY HISTORY: Noncontributory. SOCIAL HISTORY: No illicit drug use, smoking or EtOH abuse. MEDICATIONS: Reviewed by nurse reconciliation sheet. PHYSICAL EXAMINATION: VITAL SIGNS: Temperature 98.3, pulse rate of 97, blood pressure 129/92, respiratory rate 20. GENERAL: Patient is sitting up in bed, no acute distress. HEENT: Head is atraumatic, normocephalic. PERRLA. Extraocular muscles intact. NECK: Supple. No JVD, no adenopathy noted. LUNGS: Clear to auscultation. No adventitious sounds. HEART: S1, S2, normal rate and rhythm. No murmurs, rubs or gallops. ABDOMEN: Soft, nontender, nondistended. Bowel sounds present. EXTREMITIES: No clubbing, no cyanosis. Peripheral pulses are 2+ felt bilaterally. NEUROLOGIC: Patient is alert, oriented to person, place, month and year. Recall in five minutes is 2/3. Poor attention span and slow thought process. Cranial nerves II through XII intact. Motor exam: Slight increased tone throughout. Moves all extremities equally. No pronator drift seen. Sensory exam: Light touch, pinprick, proprioception, and vibration intact. DTRs are 2+ throughout. Coordination: Zlkffd-to-geqp intact. No tremor seen. Gait is deferred for now. LABORATORY DATA: Sodium is 136, potassium 3.9, chloride 103, carbon dioxide of 24, BUN of 17, creatinine 0.9, random glucose of 115. ASSESSMENT AND PLAN: This is a 57-year-old woman with history of multiple sclerosis apparently diagnosed by Dr. Reyes in 1999. [address] Reyes as a followup, was initially on Copaxone, but no longer since she was diagnosed with breast cancer in 2013, status post right mastectomy, on chemoradiation, had a syncopal event in conjunction with ongoing diarrhea, was lightheaded and temporarily passed out while going to the bathroom. No seizure-like activity. EEG showed severe bilateral cerebral dysfunction. No evidence of any epileptiform activity. At this time, I feel like the syncope was most likely vasovagal, unrelated to her history of multiple sclerosis. A CAT scan of her head showed no acute intracranial abnormality. She should get an MRI of the brain with and without contrast as an outpatient and follow up with Dr. Reyes as her neurologist for further multiple sclerosis management. At this time, continue current present medical management. I advised adequate intravenous hydration and follow recommendations. Hever Cruz MD
--- NOTE | 2017-11-28 23:01 | CON ---
DATE: 11/28/2017 CARDIOLOGY CONSULTATION HISTORY OF PRESENT ILLNESS: The patient is a 57-year-old woman who has been suffering from diarrhea for the past few days. While she was getting up out of a chair, the patient then lost consciousness and sustained trauma to her head as well as her chest. She complained of chest soreness after this episode. PAST MEDICAL HISTORY: Free of cardiac disease. She had a stress test 2 years ago at [facility] that was said to be unremarkable. She suffers from diabetes mellitus and hypercholesterolemia. In addition, she suffers from hypertension as well. SOCIAL HISTORY: The patient does not smoke. REVIEW OF SYSTEMS: 14 point review of systems is reviewed in detail. No cardiac symptomatology is noted. PHYSICAL EXAMINATION: VITAL SIGNS: Blood pressure is 117/78, heart rate in the 80s. NECK: Negative JVD. LUNGS: Without rales. HEART: S1, S2. EXTREMITIES: Without edema. EKG shows no acute changes. Laboratory reveals troponins are negative. IMPRESSION: 1. Syncope likely secondary to dehydration given her marked diarrhea as well as her antihypertensive medications including a diuretic. 2. No evidence for acute coronary syndrome. 3. Diabetes mellitus. 4. Hypertension. 5. Hypercholesterolemia. Given these findings, we will hold the antihypertensive medications for now. There is no cardiac cause of syncope that can be identified. We will discontinue telemetry today. Given her risk factors, we will advise the patient to have a repeat stress test. Dhaval Melissa MD
--- NOTE | 2017-11-29 09:30 | EEG ---
ELECTROENCEPHALOGRAM A 57-year-old woman. DIAGNOSIS: Syncope. CONDITION OF THE RECORDING: Drowsy. MEDICATIONS: Reviewed by the nurse per reconciliation sheet. INTERPRETATION: This is a 16-channel international recording. The background activity was composed of 6 to 7 cycles per second. There was small amount of beta activity of 16 to 20 cycles per second seen during this recording. There was increased amount of theta activity of 5 to 7 cycles per second seen during this tracing. There was paroxysmal delta activity, but no epileptiform activity. Drowsiness was characterized by the mixed beta and theta activities. The sleep was characterized by vertex waves, sleep spindles, and bilateral slowing. Photic stimulation showed no change in the tracing. No paroxysmal activities noted in this recording. CONCLUSION: This is an abnormal EEG due to presence of diffuse slowing throughout consistent with bilateral cerebral dysfunction. No evidence of any epileptiform activity. Please clinically correlate. Hever Cruz MD
--- NOTE | 2017-11-29 09:36 | PN ---
DATE: 11/28/2017 SUBJECTIVE: Patient was seen in the MRI area. Patient was unable to do MRI secondary to claustrophobia, which has been rescheduled. Overnight nurse's notes were reviewed. Patient denies any more diarrhea. Patient denies any syncope. Patient denies any chest pain. Denies any nausea. PHYSICAL EXAMINATION: VITAL SIGNS: T-max 98.3, pulse 74, 83, 78. Telemetry, normal sinus rhythm. Blood pressure 117/78, 120/87, 128/87. Respiration 20, O2 sat 99%. HEENT: Head examination normocephalic, atraumatic. HEENT examination shows pinkish pale conjunctivae. Dry oral mucosa. No neck rigidity. CHEST: Kyphosis. LUNGS: Shows no rales, crackles or wheezing. CARDIOVASCULAR: S1, S2, regular rhythm. No audible murmur, gallop or rub. ABDOMEN: Soft. Positive bowel sounds. Slightly protuberant abdomen. Positive surgical scar of hysterectomy. No costovertebral angle tenderness. GENITALIA: Female. EXTREMITIES: Shows no pitting edema, no calf tenderness, no Madison's signs. NEUROLOGIC: Patient is alert, awake, oriented x3. Cranial nerves II through XII intact. As mentioned, patient could not go for MRI secondary to claustrophobia. Patient only had a carotid ultrasound, which was reviewed. IMPRESSION AND PLAN: 1. Syncope with bowel incontinence. 2. Diarrhea. 3. Symptomatic hypokalemia. 4. Hypertension. 5. Normocytic anemia. 6. Elevated D-dimer, etiology undetermined. 7. Hypokalemia. 8. Hyperglycemia. 9. Proteinuria, ketonuria, hematuria, pyuria, bacteriuria and funguria. 10. Abnormal EKG with ST-T changes. 11. Syncope. 12. Chest pain, etiology undetermined. 13. History of right breast invasive ductal carcinoma, moderately differentiated, Anh score 6. 14. History of relapsing remitting multiple sclerosis. 15. History of total abdominal hysterectomy and bilateral salpingo-oophorectomy. 16. History of multiple sclerosis. 17. History of cholelithiasis with gallbladder sludge. 18. Claustrophobia. Plan at this time, the patient has been ordered repeat labs. We are awaiting for the Lyme titers. Stool cultures are pending. CURRENT CONSULTATIONS: Gastroenterology Neurology, Cardiology. CURRENT MEDICATIONS: Ambien 5 mg at bedtime p.r.n. Patient has been rescheduled and reordered for the MRI, MRA of the brain and MRI of the cervical spine with Benadryl 50 mg and Ativan 2 mg prior to the MRIs. Cardizem CD 240 mg ordered, Diovan 320 daily ordered, Drisdol 50,000 units weekly ordered, aspirin 81 mg p.o. daily ordered, heparin 5000 subcu q. 12 ordered. Patient is on K-Dur 20 mEq twice a day, Lipitor 80 mg daily, Protonix 40 mg twice a day, IV fluid 0.9 normal saline at 80 mL an hour, Tylenol p.r.n., Zofran 4 IV q. four p.r.n. MRI, MRA of the brain MRI of the cervical spine reordered. EEG pending. Repeat EKG. CT of the abdomen, pelvis pending. Patient has been ordered out of bed, ALYSON stockings, SCDs. Occupational therapy, physical therapy ordered. Patient has been updated about her condition, diagnosis, test results at length and all questions concerned answered to her satisfaction. Dictated and electronically signed, not read. Lorenzo Valenzuela MD
[2017-12-02 17:59] LABS: LYME IGG NEGATIVE (NEGATIVE)
[2017-12-02 18:16] LABS: LYME IGM NEGATIVE (NEGATIVE)
[2017-12-04] MEDS ORDERED: Ergocalciferol 50,000 Intl Units Cap PO SCH (10:00)
== END 2017-11-28 19:04 | disposition home health service (06) ==
LOC: ED 09:29 → ERH 16:17 → 2RNO 23:17 → OBSVTOIN 11-28 15:12 → INTOOBSV 11-28 15:12
PROVIDERS: ADMIT Internal Medicine; ATTEND Internal Medicine
DX: E86.0 Dehydration (principal); R55 Syncope and collapse; D64.9 Anemia, unspecified; E11.65 Type 2 diabetes mellitus with hyperglycemia; E78.00 Pure hypercholesterolemia, unspecified; E78.5 Hyperlipidemia, unspecified; E87.6 Hypokalemia; F40.240 Claustrophobia; G35 Multiple sclerosis; I11.9 Hypertensive heart disease without heart failure; I65.29 Occlusion and stenosis of unspecified carotid artery; K21.9 Gastro-esophageal reflux disease without esophagitis; N39.0 Urinary tract infection, site not specified; R31.29 Other microscopic hematuria; R79.1 Abnormal coagulation profile; Z79.899 Other long term (current) drug therapy; Z85.3 Personal history of malignant neoplasm of breast; Z90.11 Acquired absence of right breast and nipple; Z90.710 Acquired absence of both cervix and uterus; Z92.21 Personal history of antineoplastic chemotherapy; Z92.3 Personal history of irradiation; Z90.722 Acquired absence of ovaries, bilateral; R40.2412 Glasgow coma scale score 13-15, at arrival to emergency department; R07.81 Pleurodynia; R19.7 Diarrhea, unspecified; T50.2X5A Adverse effect of carbonic-anhydrase inhibitors, benzothiadiazides and other diuretics, initial encounter
CPT/HCPCS: 36415; 70450; 74177; 78582; 80053; 81001; 82248; 82550; 82607; 82746; 82948; 83615; 83690; 83735; 84439; 84443; 84484; 85025; 85378; 85610; 85730; 86592; 86618; 87086; 93005; 93880; 95812; 96360; 96361; 96372; 97161; 97530; 99285; G0378; G0480; G8978; G8979; J1644; J3480; J7040; Q9966

== ENCOUNTER 2018-10-08 13:14 | Outpatient (CLI) | payer MEDICARE | END 2018-10-08 13:15 | disposition home or self-care (01) | LOC: RAD 13:14 ==

== ENCOUNTER 2018-11-25 21:55 | Observation (INO) | payer MEDICARE, OTHER | END 2018-11-26 14:49 | disposition home or self-care (01) | LOC: ERH 11-26 01:10 → ED 21:55 → ERH 11-26 01:45 → 3RNO 11-26 02:16 ==

== ENCOUNTER 2018-12-08 08:51 | Outpatient (CLI) | payer MEDICARE, OTHER | END 2018-12-08 08:52 | disposition home or self-care (01) | LOC: CARDIO 08:51 ==

== ENCOUNTER 2018-12-13 00:29 | Inpatient (IN) | payer MEDICARE, OTHER ==
[2018-12-13 00:29] VITALS: BMI 29.1
--- NOTE | 2018-12-13 01:34 | ED PDOC ---
Arrival/HPI - General Chief Complaint: Chest Pain Time Seen by Provider: 12/13/18 01:13 Historian: Patient - History of Present Illness Narrative History of Present Illness (Text): 12/13/18 01:26 58 year old female, with past medical history of multiple sclerosis, hypertension, hyperlipidemia, anxiety, and breast cancer, presents to emergency department for non-radiating chest pain since 11 pm. Patient describes it as sharp and the feeling of the pain "popping out" into her chest. She also notes transient numbness in her left hand. She was given nitroglycerin twice in the ambulance over. Patient reports she had a stress test this Saturday and a "blockage in her heart" was found. Patient denies any fever, chills, shortness of breath, cough, nausea, vomiting, or any other complaints. Financial Systems Director: PMD: Dr. Macias 12/13/18 02:47 Time/Duration: 1-3 hours Symptom Onset: Sudden Symptom Course: Unchanged Severity Level: 8 Activities at Onset: Light Context: Home Past Medical History - Provider Review Nursing Documentation Reviewed: Yes - Infectious Disease Hx of Infectious Diseases: None - Reproductive Menopause: Yes - Cardiac Hx Hypertension: Yes - Pulmonary Hx Respiratory Disorders: No - Neurological Hx Neurological Disorder: Yes (SYNCOPE 3-7-18,MS) Hx Alzheimer's Disease: No - HEENT Hx HEENT Disorder: No - Renal Hx Renal Disorder: No - Endocrine/Metabolic Hx Endocrine Disorders: No - Hematological/Oncological Hx Blood Disorders: Yes Hx Cancer: Yes (breast ca H/O RADIATION THERAPHY, lumpectomy) Hx Chemotherapy: Yes - Integumentary Hx Dermatological Disorder: No - Musculoskeletal/Rheumatological Hx Falls: Yes - Gastrointestinal Hx Gastrointestinal Disorders: Yes (CHRONIC DIARRHEA) Hx Gastroesophageal Reflux: Yes - Genitourinary/Gynecological Hx Genitourinary Disorders: No - Psychiatric Hx Psychophysiologic Disorder: Yes (INSOMNIA) Hx Anxiety: Yes Hx Depression: No Hx Emotional Abuse: No Hx Physical Abuse: No Hx Substance Use: No - Surgical History Hx Hysterectomy: Yes Hx Musculoskeletal Surgery: Yes (back) Other/Comment: LEFT AND RIGHT BREAST lumpectomy - Anesthesia Hx Anesthesia: Yes Hx Anesthesia Reactions: No Hx Malignant Hyperthermia: No - Suicidal Assessment Feels Threatened In Home Enviroment: No Family/Social History - Physician Review Nursing Documentation Reviewed: Yes Family/Social History: Unknown Family HX Smoking Status: Never Smoked Hx Alcohol Use: Yes (occasional) Hx Substance Use: No Allergies/Home Meds Allergies/Adverse Reactions: Allergies No Known Allergies Allergy (Verified 12/13/18 00:50) Home Medications: Home Meds Medication Instructions Recorded Confirmed Ergocalciferol (Vitamin D2) 50,000 unit PO QWK 11/27/17 12/13/18 [Vitamin D2] Pantoprazole Sodium [Protonix] 40 mg PO BID 11/27/17 12/13/18 Potassium Chloride [Klor-Con M10] 10 meq PO BID 11/27/17 12/13/18 Rosuvastatin Calcium [Crestor] 20 mg PO HS 11/27/17 12/13/18 Diltiazem HCl [Diltiazem 24Hr Cd] 240 mg PO DAILY 11/25/18 12/13/18 HCTZ/Losartan Potassium [Hyzaar 1 tab PO DAILY 11/25/18 12/13/18 12.5 mg-50 mg] Tamoxifen [Nolvadex] 20 mg PO DAILY 11/25/18 12/13/18 traMADol [Ultram] 50 mg PO BID PRN 11/25/18 12/13/18 Zolpidem Tartrate [Ambien] 10 mg PO HS PRN 11/26/18 12/13/18 Review of Systems - Physician Review All systems were reviewed & negative as marked: Yes - Review of Systems Constitutional: absent: Fevers Respiratory: absent: SOB, Cough Cardiovascular: Chest Pain (non-radiating) Gastrointestinal: absent: Abdominal Pain, Diarrhea, Nausea, Vomiting Genitourinary Female: absent: Urine Output Changes Musculoskeletal: Other (numbness in left hand ). absent: Back Pain, Neck Pain Skin: absent: Rash Physical Exam - Physical Exam Narrative Physical Exam (Text): 12/13/18 01:34 Gen: VS reviewed, alert, well developed, well nourished, nontoxic, mild distress Eye: EOMI, PERRL Neck: no JVD, supple, no adenopathy CV: regular rate, regular rhythm, no rubs,no murmur, S1, S2 Pulm: no distress, clear to auscultation, no wheeze, no rhonchi, breath sounds equal, no rales Abd: soft, nontender, no guarding, no rebound, no rigidity Ext: no edema Skin: good color, no rash, no cyanosis Psych: responds appropriately to questions, normal affect Neuro: oriented x3, CN2-12 intact grossly, motor intact, sensation intact Vital Signs Reviewed: Yes Vital Signs Temp Pulse Resp BP Pulse Ox 12/13/18 00:38 98.2 F 67 20 130/68 97 Temperature: Afebrile Blood Pressure: Normal Pulse: Regular Respiratory Rate: Normal Appearance: Positive for: Well-Appearing, Non-Toxic, Comfortable Pain Distress: None Mental Status: Positive for: Alert and Oriented X 3 Medical Decision Making ED Course and Treatment: 12/13/18 01:35 Impression: 58 year old female presents to emergency department for non-radiating chest pain since 11 pm. Plan: -- Reassess and disposition Prior Visits: Notes and results from previous visits were reviewed. Progress Notes: 12/13/18 03:[address] long, covering for dr. macias. patient to be admitted for intermittent chest pain, rule out acs, known recent abnormal stress test with dr. hager. patient received full dose aspirin prior to arrival, chest pain free at this time. - EKG Interpretation EKG Interpretation (Text): 12/13/18 07:20 0041: nsr at 69 bpm, nml qrs, nml axis, nonspecific t wave abn Interpreted by ED Physician: Yes - Scribe Statement The provider has reviewed the documentation as recorded by the Scribe Christ Gibbons All medical record entries made by the Scribe were at my direction and personally dictated by me. I have reviewed the chart and agree that the record accurately reflects my personal performance of the history, physical exam, medical decision making, and the department course for this patient. I have also personally directed, reviewed, and agree with the discharge instructions and disposition. Disposition/Present on Arrival - Present on Arrival Any Indicators Present on Arrival: No History of DVT/PE: No History of Uncontrolled Diabetes: No Urinary Catheter: No History of Decub. Ulcer: No History Surgical Site Infection Following: None - Disposition Have Diagnosis and Disposition been Completed?: Yes Diagnosis: Angina at rest Disposition: HOSPITALIZED Disposition Time: 04:01 Patient Plan: Admission Patient Problems: Current Active Problems Problem Status Onset Angina at rest Acute Condition: GUARDED
[2018-12-13] MEDS ORDERED: Nitroglycerin 2% Ointment Foilpak UD TOP STA (01:43)
[2018-12-13 02:56] LABS: ALB/GLOB RATIO 1.3 (1.1-1.8); ALBUMIN 3.9 g/dL (3.0-4.8); ALT/SGPT 16 U/L (7-56); AST/SGOT 38 U/L (14-36); BLOOD UREA NITROGEN 12 mg/dL (7-21); CALCIUM 8.5 mg/dL (8.4-10.5); GFR NON-AFRICAN AMERICAN > 60
[2018-12-13 03:03] LABS: TROPONIN I < 0.01 ng/mL
[2018-12-13 03:07] LABS: BASO # 0.13 K/mm3 (0.0-2.0); EOS # 0.1 (0.0-0.7); EOS % 0.9 % (1.5-5.0); HEMOGLOBIN 11.2 g/dL (12.0-16.0); LYMPH # 2.8 (1.2-3.4); LYMPH % 20.8 % (22.0-35.0); MEAN CELL VOLUME 82.7 fl (80.0-105.0); MEAN CORPUSCULAR HEMOGLOBIN 26.2 pg (25.0-35.0); MEAN CORPUSCULAR HGB CONC 31.7 g/dl (31.0-37.0); MEAN PLATELET VOLUME 9.5 fl (7.0-11.0); MONO # 0.4 (0.1-0.6); MONO % 2.8 % (1.0-6.0); RBC 4.27 10^6/uL (3.5-6.1); RED CELL DISTRIBUTION WIDTH 16.1 % (11.5-14.5); WHITE BLOOD COUNT 13.4 10^3/uL (4.5-11.0)
[2018-12-13 03:11] LABS: INR 1.1; PARTIAL THROMBOPLASTIN TIME 31.3 Seconds (26.9-38.3); PROTHROMBIN TIME 12.2 SECONDS (9.4-12.5)
[2018-12-13] MEDS ORDERED: Nitroglycerin 2% Ointment Foilpak UD TOP PRN (09:55)
--- NOTE | 2018-12-13 13:15 | RAD ---
Date of service: 12/13/2018 HISTORY: chest pain COMPARISON: 11/25/2018. FINDINGS: LUNGS: The lungs are well inflated and clear. PLEURA: No pleural effusions or pneumothorax. CARDIOVASCULAR: The heart is normal in size. No aortic atherosclerotic calcifications present. OSSEOUS STRUCTURES: Within normal limits for the patient's age. VISUALIZED UPPER ABDOMEN: Normal. OTHER FINDINGS: There is chronic elevation of the right hemidiaphragm. IMPRESSION: No active pulmonary disease.
[2018-12-13] MEDS: Potassium Chloride 10 mEq ER Tab PO SCH (14:03)
[2018-12-13] MEDS: diltiaZEM 240 mg/24 Hours CD Cap PO SCH (14:03)
--- NOTE | 2018-12-13 14:30 | HP ---
DATE OF EXAM: 12/13/2018 HISTORY OF PRESENT ILLNESS: The patient is in [facility] emergency room. She arrived in the supervisor hydrochloric area hours with chest pain. She is a 58-year-old female; she has history of chest pain in the past. She has had cardiac stress test last week and was told that she might need cardiac catheterization; however, she had discomfort in the chest. She could not resist she had to come to emergency room. She had no shortness of breath. PAST MEDICAL HISTORY: The patient's past history is significant that she has hypertension. The patient has history of abnormal stress test in the past. The patient has past history of cancer on the breast treated with radiation and chemotherapy and lumpectomy. The patient also had back surgery. She also had hysterectomy and she has anxiety and chronic intermittent diarrhea. SOCIAL HISTORY: She is not a smoker. She is not an alcohol abuser. She only drinks alcohol occasionally. PHYSICAL EXAMINATION: GENERAL: The patient is seen in the emergency room, she is resting fairly well at this time. HEENT: The patient's head is normocephalic. NECK: Thyroid is not enlarged. JVP is flat. Carotid pulses present bilaterally. No lymphadenopathy. LUNGS: Trachea is central. Breath sounds are vesicular. No adventitious sounds. HEART: Normal sinus rhythm. S1 and S2, present. No murmur. No rubs. ABDOMEN: Liver and spleen is not palpable. CENTRAL NERVOUS SYSTEM: The patient's cranial nerves II-XII are intact. Motor, sensory functions and cerebellar functions are within normal limits. LABORATORY DATA: The patient's lab work done in the emergency room, the hemoglobin is 11.2 and the white count is 13,000. The patient's chemistry the troponin was within normal range. The patient's liver enzymes are slightly elevated. GFR is good. MEDICATIONS: The patient is on Nitroglycerine and pantoprazole at this time. The patient's summary, home medications she is on Tramadol for pain. She is on Ambien for sleep, Nolvadex 20 mg daily for carcinoma of the breast, Crestor 20 mg daily, potassium chloride, pantoprazole 40 mg daily, hydrochlorothiazide with Losartan 50/12.5. The patient is on vitamin D, Cardizem 240 mg p.o. daily for blood pressure. The patient will have the consultation with Dr. Dhaval Melissa, her delivery lead and for evaluation. We will followup. The diet will be heart healthy diet. Chelsea Schilling MD MTDDonita
[2018-12-13] MEDS: Pantoprazole 40 mg EC Tab PO SCH (16:14)
--- NOTE | 2018-12-13 17:44 | CON ---
DATE OF CONSULTATION: 12/13/2018 REASON FOR CONSULTATION: Chest pain. HISTORY OF PRESENT ILLNESS: The patient is 58-year-old female who has a history of hypertension and underwent recently a Myoview stress test, which was positive for anterior ischemia and was considered for cardiac catheterization next week. The patient has a history of multiple sclerosis, anxiety and breast cancer and she presents because of typical retrosternal chest pain. At this time, the patient is chest pain free. SOCIAL HISTORY: The patient is a smoker. MEDICATIONS: Ambien 10 mg h.s. daily, Cardizem CD 240 mg once a day, Cozaar 50 mg once a day, Klor-Con 10 mEq once a day, Lipitor 20 mg once a day, Ultram 50 mg twice a day, Protonix 40 mg p.o. twice a day. REVIEW OF SYSTEMS: No nausea or vomiting. No fever or chills. PHYSICAL EXAMINATION: GENERAL: The patient is a middle-aged female who does not appear to be in acute distress. VITAL SIGNS: Blood pressure 135/83, heart rate 73, temperature 97.3, respirations 20. HEENT: Head normocephalic. CHEST: Clear. HEART: S1 and S2 regular. ABDOMEN: Soft. EXTREMITIES: No edema. LABORATORY DATA: Hemoglobin and hematocrit 11.2 and 35.3, white count 15.4, platelet count 448,000. Admitting PT/PTT and INR are within normal limits. SMA-7 is entirely within normal limits. One set of troponin is negative. EKG revealed sinus rhythm with possible left atrial enlargement. Heart rate is 69 beats per minute. Echocardiograph study performed 5 days ago revealed good left ventricular systolic function, borderline LVH, dilated left atrium and no pulmonary hypertension. The exercise stress test was equivocal. The nuclear scan was reported to be positive for reversible anterior defect suspicious of ischemia. ASSESSMENT: 1. Chest pain, rule out myocardial infarction. 2. Recent positive Myoview stress test. 3. History of hyperlipidemia. 4. Anxiety disorder. RECOMMENDATIONS: Continue Cardizem 240 mg once a day, Cozaar 50 mg once a day, Lipitor 20 mg once a day, Klor-Con at 10 mEq once a day. Start aspirin 81 mg once a day, Plavix 75 mg once a day, and subcutaneous Lovenox at 30 mg once a day. The patient will be considered for cardiac catheterization on Saturday. Moses Badillo MD
--- NOTE | 2018-12-13 23:55 | CARD ---
APPROVED REPORT Date of service: 12/13/2018 EKG Measurement Heart [id number] <Conclusion> Normal sinus rhythm Possible Left atrial enlargement NDSTT abnormalities Abnormal ECG
[2018-12-14] MEDS: Pantoprazole 40 mg EC Tab PO SCH ×2 (06:36→16:44)
[2018-12-14] MEDS: Potassium Chloride 10 mEq ER Tab PO SCH (09:43)
[2018-12-14] MEDS: diltiaZEM 240 mg/24 Hours CD Cap PO SCH (09:43)
--- NOTE | 2018-12-14 10:49 | PN ---
DATE: 12/14/2018 SUBJECTIVE: The patient is in [facility] on telemetry unit, room 271, bed 1. The patient was admitted yesterday with chest pain. She has history of positive stress test, it was done as an outpatient. The patient has past history of hypertension and gastritis. The patient has history of multiple sclerosis. She also has history of lower back pain. The patient has history of breast carcinoma and she was treated with chemotherapy, lumpectomy and radiation treatment. The patient is seen this morning, she says she had an episode of chest pain yesterday. She was treated with nitroglycerine with complications such as headache as a result of nitroglycerine . The patient's chest pain is relieved at this time. PHYSICAL EXAMINATION: VITAL SIGNS: The patient's pulse is 61, blood pressure 100/66, respirations are 18 and O2 sat is 97% on room air. The patient is lying down comfortably in bed. HEENT: Head is normocephalic. HEART: Normal sinus rhythm. S1 and S2, present. LUNGS: Trachea is central. Breath sounds are vesicular. No adventitious sounds. ABDOMEN: Soft. Liver and spleen not palpable. CENTRAL NERVOUS SYSTEM: No focal deficit. The patient is admitted with unstable angina with history of coronary artery disease based on stress test finding. General Science Teacher is following the case. The patient might need interventional procedure tomorrow. No lab work done so far today, the patient's white count is slightly elevated. Chemistry; the patient's troponin is less than 0.01. MEDICATIONS: The patient's list of medications consists of Ambien 10 mg at bedtime, aspirin 81 mg daily, Cardizem 240 mg daily, losartan 50 mg, potassium chloride 10 mEq daily, Lipitor 20 mg daily and nitroglycerine p.r.n. The patient is on tamoxifen 20 mg daily for carcinoma of the breast. The diet is heart healthy diet. The patient is clinically stable at this point. We will followup clinically and the patient will be seen by the General Science Teacher tomorrow morning. Chelsea Schilling MD MARITZA
[2018-12-14 11:28] LABS: TROPONIN I < 0.01 ng/mL
[2018-12-14 16:52] LABS: URINE BILIRUBIN NEGATIVE (NEGATIVE); URINE BLOOD NEGATIVE (NEGATIVE); URINE GLUCOSE (UA) NEGATIVE (NEGATIVE); URINE LEUKOCYTE ESTERASE TRACE Leu/uL (NEGATIVE); URINE PROTEIN NEGATIVE mg/dL (<30 mg/dL); URINE UROBILINOGEN 0.2 E.U./dL (<1 E.U./dL)
[2018-12-14 16:58] LABS: URINE APPEARANCE CLEAR (CLEAR); URINE COLOR STRAW (YELLOW)
[2018-12-14 17:15] LABS: URINE BACTERIA SMALL /hpf
--- NOTE | 2018-12-14 19:41 | CARD ---
APPROVED REPORT Date of service: 12/14/2018 EKG Measurement Heart [id number] <Conclusion> Normal sinus rhythm Minor NDSTT abnormalities Borderline ECG
--- NOTE | 2018-12-14 22:02 | PN ---
DATE: 12/14/2018 SUBJECTIVE: The patient did experience an episode of chest pain last night that lasted a few minutes. She is currently chest pain free. PHYSICAL EXAMINATION: VITAL SIGNS: Blood pressure 118/78, heart rate 74, temperature 97.5, respirations 20. HEENT: Normocephalic. CHEST: Clear. HEART: S1 and S2, regular. ABDOMEN: Soft. EXTREMITIES: No edema. LABORATORY DATA: Two sets of troponin including one done today are negative. ASSESSMENT: 1. Chest pain. Myocardial infarction is ruled out. 2. Positive recent Myoview stress test. 3. History of hyperlipidemia. RECOMMENDATIONS: Continue current aspirin 81 mg once a day, Cozaar 50 mg once a day, Cardizem CD 240 mg once a day, Lipitor 20 mg once a day, Klor-Con 10 mEq once a day, Plavix 75 mg once a day. The patient will be kept n.p.o. after liquid breakfast for cardiac catheterization tomorrow. Moses Badillo MD
[2018-12-15] MEDS: Pantoprazole 40 mg EC Tab PO SCH ×2 (05:52→17:23)
[2018-12-15 07:16] LABS: BASO # 0.09 K/mm3 (0.0-2.0); BASO % 0.8 % (0.0-3.0); EOS # 0.2 (0.0-0.7); EOS % 1.7 % (1.5-5.0); HEMOGLOBIN 10.5 g/dL (12.0-16.0); LYMPH # 2.6 (1.2-3.4); LYMPH % 23.1 % (22.0-35.0); MEAN CELL VOLUME 81.9 fl (80.0-105.0); MEAN CORPUSCULAR HEMOGLOBIN 25.7 pg (25.0-35.0); MEAN CORPUSCULAR HGB CONC 31.4 g/dl (31.0-37.0); MEAN PLATELET VOLUME 9.3 fl (7.0-11.0); MONO # 0.3 (0.1-0.6); MONO % 2.9 % (1.0-6.0); RBC 4.08 10^6/uL (3.5-6.1); RED CELL DISTRIBUTION WIDTH 16.2 % (11.5-14.5); WHITE BLOOD COUNT 11.3 10^3/uL (4.5-11.0)
[2018-12-15 07:25] LABS: BLOOD UREA NITROGEN 13 mg/dL (7-21); CALCIUM 8.7 mg/dL (8.4-10.5); GFR NON-AFRICAN AMERICAN > 60
[2018-12-15] MEDS: Potassium Chloride 10 mEq ER Tab PO SCH (08:51)
--- NOTE | 2018-12-15 09:31 | PN ---
DATE: 12/15/2018 SUBJECTIVE: The patient is a 58-year-old female who is in room 271, bed 1. She was admitted with chest pain. The patient has history of positive stress test performed as an outpatient. The patient has past history of hypertension. She has history of anxiety, history of carcinoma of the breast, gastritis. The patient is seen this morning, sitting up in bed. She is comfortable. She has no chest pain noted at this time. The patient is evaluated. PHYSICAL EXAMINATION: VITAL SIGNS: Pulse is 69, blood pressure 107/57, respirations are 18, O2 sat is 99% on room air. HEENT: Head is normocephalic. NECK: The thyroid is not enlarged. Carotid pulses are +1. HEART: Normal sinus rhythm. S1 and S2 present. No murmurs. ABDOMEN: Soft. Liver and spleen not palpable. CENTRAL NERVOUS SYSTEM: No focal deficit. LUNGS: Trachea is central. Breath sounds are vesicular. No adventitious sounds. The patient has reevaluation of the CBC. The white count is 11,000. Chemistry, the patient's troponin level was less than 0.01 and on repeat, it is still less than 0.01. The patient is reevaluated by the stars coordinator today and will follow up with medical management. The patient's vital signs are stable. Chelsea Schilling MD MARITZA
[2018-12-15] MEDS: diltiaZEM 240 mg/24 Hours CD Cap PO SCH (09:51)
[2018-12-15] MEDS ORDERED: Lidocaine PF 2% (5 ml) Inj (For Cardiac Arrhy) ONE (11:22)
[2018-12-15] MEDS ORDERED: Iodixanol 320 MG/ML 200 ML BOTTLE IV ONE (11:23)
[2018-12-15] MEDS ORDERED: Iohexol 350mgl/ml 50 ML ONE (11:23)
[2018-12-15] MEDS ORDERED: Iodixanol 320 MG/ML 100 ML BOTTLE IV ONE (11:23)
[2018-12-15] MEDS ORDERED: Midazolam 2 MG/2 ML VIAL ONE ×2 (12:08→12:12)
[2018-12-15] MEDS ORDERED: Sodium Chloride 0.9% 1,000 ML IV SCH (12:45)
[2018-12-15 16:35] VITALS: O2SAT 100
[2018-12-15 17:05] VITALS: PULSE 76
[2018-12-15 19:08] VITALS: BP 122/74; RESP 20; TEMP 98.4
--- NOTE | 2018-12-16 10:07 | DS ---
This is a patient of Dr. Lorenzo Valenzuela. BRIEF HISTORY: This is a 58-year-old female with history of hypertension, recent abnormal stress test, breast cancer treated with radiation and chemotherapy, and multiple sclerosis, who presented to the emergency room with chest pain. The patient complained of a sharp pain, which she states was not relieve with rest. She denied shortness of breath, nausea or vomiting. HOSPITAL COURSE: She was admitted to the telemetry floor. Dr. Melissa who is her forester aide was consulted. She was placed on nitroglycerin as well as her home medications. The patient underwent cardiac catheterization procedure, which showed normal coronary arteries. The patient was cleared for discharge by Cardiology. She was discharged home in stable condition. DISCHARGE DIAGNOSES: Chest pain, multiple sclerosis, history of beast cancer, hypertension, and hyperlipidemia. DISCHARGE MEDICATIONS: Crestor 20 mg at night, diltiazem 240 mg once a day, Hyzaar 50/12.5 mg daily, Klor-Con 10 mEq twice a day, tamoxifen 20 mg daily, Protonix 40 mg twice a day, Ultram 50 mg twice a day as needed for pain, vitamin D2 of 50,000 units once a week and Ambien 10 mg at night as needed for insomnia. FOLLOWUP: The patient will follow up with Dr. Lorenzo Valenzuela, who is her primary care doctor. Apolinar Schilling MD MTDD
--- NOTE | 2018-12-19 09:13 | CARDCATH ---
PROCEDURE DATE: 12/15/2018 CARDIAC CATHETERIZATION The patient represented with severe chest pain. Her stress test was abnormal and myocardial infarction was ruled out. Because of her symptoms, cardiac catheterization was recommended. PROCEDURE: Left heart catheterization with coronary arteriogram and left ventriculogram. The right femoral artery was cannulated with 6-Maltese sheath. There were no complications. I performed moderate sedation, which included the presence of an independent trained observer that assisted in monitoring the patient's level of consciousness and physiologic status. After administration of Versed and fentanyl, my intra service time was 15 minutes. The findings on catheterization revealed a left ventricle that contracted normally. Estimated ejection fraction of 65%. Her coronary anatomy revealed a right dominant circulation, the RCA was within normal limits. The left main artery was within normal limits. The LAD and diagonal vessels were free of significant disease. Circumflex artery and obtuse marginal branches were within normal limits. Angio-Seal was used to close the femoral artery site. The patient tolerated the procedure well. In summary, the procedure cardiac catheterization revealed normal coronary arteries with normal LV function. Given these findings, the patient's chest pain is not of cardiac origin. We will continue to discuss this with the patient in detail. From a cardiac perspective, the patient can be discharged. Followup instructions have been given to the patient. She will see Dr. Valenzuela in the office next week. Dhaval Melissa MD MTDDonita
== END 2018-12-15 19:00 | disposition home or self-care (01) | DRG 287 ==
LOC: ED 00:29 → ERH 04:01 → 2RSO 10:49
PROVIDERS: ADMIT Internal Medicine; ATTEND Internal Medicine
PROC: 4A023N7 Measurement of Cardiac Sampling and Pressure, Left Heart, Percutaneous Approach (ICD-10-PCS; principal; 2018-12-15)
PROC: B211YZZ Fluoroscopy of Multiple Coronary Arteries using Other Contrast (ICD-10-PCS; 2018-12-15)
PROC: B215YZZ Fluoroscopy of Left Heart using Other Contrast (ICD-10-PCS; 2018-12-15)
DX: R07.89 Other chest pain (principal); I10 Essential (primary) hypertension; G35 Multiple sclerosis; F41.9 Anxiety disorder, unspecified; K21.9 Gastro-esophageal reflux disease without esophagitis; E78.5 Hyperlipidemia, unspecified; G47.00 Insomnia, unspecified; K29.70 Gastritis, unspecified, without bleeding; G43.909 Migraine, unspecified, not intractable, without status migrainosus; Z85.3 Personal history of malignant neoplasm of breast; Z92.21 Personal history of antineoplastic chemotherapy; Z92.3 Personal history of irradiation